=== PATIENT | female | born 1940 | race Caucasian/White ===

== ENCOUNTER 2022-02-08 20:52 | Emergency (ER) | payer MEDICARE ==
[~2022-02-08 20:52] MED LIST: Iopamidol 370 76% 100 ML VIAL ONE
[2022-02-08 22:24] LABS: Hemoglobin 12.2 g/dL (12.0-15.5); Mean Corpuscular HGB CONC 34.3 g/dL (32.0-36.0); Mean Corpuscular Volume 84.8 fl (81.6-98.3); Mean Platelet Volume 11.5 fl (7.4-10.4); Platelet Count 279 10x3/uL (150-450); White Blood Cell (WBC) Count 6.7 10x3/uL (3.5-10.5)
[2022-02-08 22:25] LABS: ALT (SGPT) 37 U/L (8-55); AST (SGOT) 34 U/L (5-34); Albumin 3.5 g/dL (3.4-4.8); Alkaline Phosphatase 66 U/L (40-110); Anion Gap 14 mmol/L (10-20); BUN (Urea Nitrogen) 23 mg/dL (9.8-20.1); Bilirubin, Total 0.3 mg/dL (0.2-1.2); CK (CPK) 96 U/L (29-168); Calc. Creatinine Clearance 0 mL/min (70-130); Calcium 9.9 mg/dL (7.8-10.44); Carbon Dioxide 29 mmol/L (23-31); Chloride 98 mmol/L (98-107); Estimated GFR 53; Globulin 3.5 g/dL (2.4-3.5); Glucose 113 mg/dL (83-110); Lipase 24 U/L (8-78); Sodium 138 mmol/L (136-145)
[2022-02-08 22:31] LABS: Bilirubin Neg (Negative); Blood, Urine Negative (Negative); Clarity Clear (Clear); Glucose, Urine (Dipstick) Normal (Negative); Ketone, Urine Negative (Negative); Leukocyte 25 (Negative); Nitrite Negative (Negative); Protein, Urine (Dipstick) Negative (Neg-Trace); Urobilinogen Normal mg/dL (Less than 2); pH, Urine 6.5 (5.0-9.0)
[2022-02-08 22:34] LABS: MDiff Complete? YES
[2022-02-08 22:38] LABS: Lymphocytes 36 % (21-51); Monocytes 10 % (0-10); Neutrophil 54 % (42-75)
[2022-02-08 22:39] LABS: Platelet Morphology Comment Appears Adequate; RBC Morphology Normal
[2022-02-08 22:46] LABS: Bacteria/HPF Rare-Few HPF (None Seen); RBC/HPF 0-3 HPF (0-3); Squamous Epithelial 0-3 HPF (0-3)
[2022-02-08] MEDS ORDERED: Potassium Chloride 20 MEQ TAB ONE (23:02)
== END 2022-02-09 00:22 | disposition home or self-care (01) ==
LOC: CSHERS 20:52
DX: R53.1 Weakness (principal); Z20.822 Contact with and (suspected) exposure to COVID-19; I10 Essential (primary) hypertension; E03.9 Hypothyroidism, unspecified; K21.9 Gastro-esophageal reflux disease without esophagitis; Z79.899 Other long term (current) drug therapy
CPT/HCPCS: 71045; 71275; 82550; 83690; 83880; 84484; 85379; 93005; 99285; U0003; U0005; 36415; 80053; 81003; 81015; 84443; 85025; Q9967

== ENCOUNTER 2022-03-03 12:37 | Outpatient (CLI) | payer MEDICARE ==
[2022-03-03 14:06] LABS: #Basophils 0.1 10x3/uL (0.0-0.2); #Eosinphils 0.3 10x3/uL (0.0-0.5); #Monocytes 0.6 10x3/uL (0.0-1.1); %Basophils 1.2 % (0.0-2.0); %Eosinophils 4.3 % (0.0-6.0); %Lymphocytes 27.7 % (18.0-47.0); %Monocytes 8.1 % (0.0-10.0); %Neutrophils 58.4 % (40.0-75.0); Hemoglobin 12.7 g/dL (12.0-15.5); Mean Corpuscular HGB CONC 32.6 g/dL (32.0-36.0); Mean Corpuscular Hemoglobin 28.2 pg (27.0-33.0); Mean Corpuscular Volume 86.3 fl (81.6-98.3); Mean Platelet Volume 11.6 fl (7.4-10.4); Platelet Count 294 10x3/uL (150-450); RBC Distribution Width 13.3 % (11.5-14.5); Red Blood Cell (RBC) Count 4.51 10x6/uL (3.90-5.03); White Blood Cell (WBC) Count 6.8 10x3/uL (3.5-10.5)
[2022-03-03 14:20] LABS: INR-International Normal Ratio 1.1; Prothrombin Time 11.7 sec (9.5-12.1)
[2022-03-03 14:25] LABS: Anion Gap 12 mmol/L (10-20); BUN (Urea Nitrogen) 15 mg/dL (9.8-20.1); Calc. Creatinine Clearance 0 mL/min (70-130); Carbon Dioxide 33 mmol/L (23-31); Chloride 101 mmol/L (98-107); Potassium 3.9 mmol/L (3.5-5.1); Sodium 142 mmol/L (136-145)
[2022-03-03 14:26] LABS: Calcium 9.9 mg/dL (7.8-10.44); Estimated GFR 58; Glucose 87 mg/dL (83-110)
== END 2022-03-03 12:38 | disposition home or self-care (01) ==
LOC: CSHLAB 12:37
PROVIDERS: ATTEND Specialist
DX: Z01.812 Encounter for preprocedural laboratory examination (principal); Z20.822 Contact with and (suspected) exposure to COVID-19
CPT/HCPCS: 80048; 85025; 85610; 87811

== ENCOUNTER → 2022-03-07 | Day surgery (SDC) | payer MEDICARE ==
[~2022-03-07] MED LIST changes: +Fentanyl 100 MCG/2 ML VIAL ONE; +Gentamicin 80 MG/2 ML VIAL ONE; +Iopamidol 300 61% 50 ML VIAL FS ONE; -Iopamidol 370 76% 100 ML VIAL ONE; +Lidocaine 1% 20 ML MDV ONE; +Lidocaine 2 gm/D5W 500 ml 500 ML ONE; +Midazolam HCl 2 mg/2 ml Vial ONE; +Vancomycin HCl 500 MG VIAL ONE
[2022-03-07 10:23] VITALS: TEMP 98.3
== END ==
LOC: CSHSDC 05:55
PROVIDERS: ATTEND Specialist
PROC: 0JH606Z Insertion of Pacemaker, Dual Chamber into Chest Subcutaneous Tissue and Fascia, Open Approach (ICD-10-PCS; principal; 2022-03-07)
PROC: 02H60JZ Insertion of Pacemaker Lead into Right Atrium, Open Approach (ICD-10-PCS; 2022-03-07)
PROC: 02HK0JZ Insertion of Pacemaker Lead into Right Ventricle, Open Approach (ICD-10-PCS; 2022-03-07)
DX: I25.10 Atherosclerotic heart disease of native coronary artery without angina pectoris (principal); I49.5 Sick sinus syndrome; I48.0 Paroxysmal atrial fibrillation; R55 Syncope and collapse; I10 Essential (primary) hypertension; I34.0 Nonrheumatic mitral (valve) insufficiency; E03.9 Hypothyroidism, unspecified; E78.00 Pure hypercholesterolemia, unspecified; Z20.822 Contact with and (suspected) exposure to COVID-19; E11.21 Type 2 diabetes mellitus with diabetic nephropathy; Z79.82 Long term (current) use of aspirin; Z79.899 Other long term (current) drug therapy; Z79.01 Long term (current) use of anticoagulants; Z88.0 Allergy status to penicillin; Z88.8 Allergy status to other drugs, medicaments and biological substances; Z90.49 Acquired absence of other specified parts of digestive tract
CPT/HCPCS: 33208; 71045; C1785; C1898 ×2; 99152; 99153; J1580; J2001; J2250; J3010; J3370; Q9967

== ENCOUNTER 2022-05-17 11:10 | Outpatient (CLI) | payer MEDICARE | END 2022-05-17 11:11 | disposition home or self-care (01) | LOC: CSHMAMMO 11:10 | PROVIDERS: ATTEND Internal Medicine | DX: Z12.31 Encounter for screening mammogram for malignant neoplasm of breast (principal); Z80.3 Family history of malignant neoplasm of breast | CPT/HCPCS: 77063; 77067 ==

== ENCOUNTER 2023-05-15 10:33 | Outpatient (CLI) | payer MEDICARE | END 2023-05-15 10:34 | disposition home or self-care (01) | LOC: CSHRAD 10:33 | PROVIDERS: ATTEND Nurse Practitioner Family | DX: Z01.818 Encounter for other preprocedural examination (principal); Z95.0 Presence of cardiac pacemaker | CPT/HCPCS: 71046 ==

== ENCOUNTER 2023-05-17 12:49 | Outpatient (CLI) | payer MEDICARE | END 2023-05-17 12:50 | disposition home or self-care (01) | LOC: CSHSPEC 12:49 | PROVIDERS: ATTEND Anesthesiology Pain Medicine | DX: M51.16 Intervertebral disc disorders with radiculopathy, lumbar region (principal); Z95.0 Presence of cardiac pacemaker; Z98.1 Arthrodesis status; M51.9 Unspecified thoracic, thoracolumbar and lumbosacral intervertebral disc disorder; M48.061 Spinal stenosis, lumbar region without neurogenic claudication; M48.07 Spinal stenosis, lumbosacral region | CPT/HCPCS: 72148 ==

== ENCOUNTER 2023-07-10 12:12 | Outpatient (CLI) | payer MEDICARE | END 2023-07-10 12:13 | disposition home or self-care (01) | LOC: CSHMAMMO 12:12 | PROVIDERS: ATTEND Internal Medicine | DX: Z12.31 Encounter for screening mammogram for malignant neoplasm of breast (principal); Z80.3 Family history of malignant neoplasm of breast | CPT/HCPCS: 77063; 77067 ==

== ENCOUNTER 2023-09-24 08:29 | Outpatient (CLI) | payer MEDICARE | END 2023-09-24 08:30 | disposition home or self-care (01) | LOC: CSHSPEC 08:29 | PROVIDERS: ATTEND Nurse Practitioner Family | DX: M47.22 Other spondylosis with radiculopathy, cervical region (principal); M48.02 Spinal stenosis, cervical region | CPT/HCPCS: 72141 ==

== ENCOUNTER 2024-01-02 09:03 | Outpatient (CLI) | payer MEDICARE | END 2024-01-02 09:04 | disposition home or self-care (01) | LOC: CSHMRI 09:03 | PROVIDERS: ATTEND Anesthesiology Pain Medicine | DX: Z01.818 Encounter for other preprocedural examination (principal); M48.04 Spinal stenosis, thoracic region; M48.062 Spinal stenosis, lumbar region with neurogenic claudication; Z98.890 Other specified postprocedural states; Z98.1 Arthrodesis status; M48.061 Spinal stenosis, lumbar region without neurogenic claudication; M47.814 Spondylosis without myelopathy or radiculopathy, thoracic region | CPT/HCPCS: 71045; 72146; 72148 ==